=== PATIENT | female | born 1975 | race African-American/Black ===

== ENCOUNTER 2020-09-25 05:48 | Emergency (ER) | payer SELFPAY ==
[~2020-09-25] VITALS: Ht 162.6 cm; Wt 63.6 kg
[2020-09-25 06:06] VITALS: BP 122/57; Ht 162.6 cm; Wt 63.6 kg
[2020-09-25 07:15] LABS: BASOPHILS 0.3 % (0-2); EOSINOPHILS 0 % (0-7); HEMATOCRIT 40.1 % (36.0-48.0); HEMOGLOBIN 13.2 g/dL (12-16); LYMPHOCYTES 15.4 % (15-50); MCH 26.9 pg (26.0-34.0); MCHC 32.9 g/dL (31.0-37.0); MCV 81.7 fL (80.0-100.0); MEAN PLATELET VOLUME 8.8 fL (7.4-10.4); MONOCYTES 6.5 % (2-11); NEUTROPHILS 77.8 % (40-80); PLATELET COUNT 266 10x3/uL (130-400); RBC 4.91 10x6/uL (4.00-5.40); RDW 14.5 % (11.5-14.5); WBC 14.7 10x3/uL (4.8-10.8)
[2020-09-25 07:21] LABS: CALCIUM 9.9 mg/dL (8.5-10.1); CARBON DIOXIDE 28.1 mmol/L (21.0-32.0); CREATININE - SERUM 0.9 mg/dL (0.6-1.3); POTASSIUM - SERUM 3.1 mmol/L (3.5-5.1)
[2020-09-25 07:27] LABS: ALBUMIN 3.9 g/dL (3.4-5.0); BILIRUBIN - TOTAL 0.46 mg/dL (0.2-1.3); C-REACTIVE PROTEIN 0.2 mg/dL (0.0-0.9); PROTEIN - SERUM 8.7 g/dL (6.4-8.2)
[2020-09-25 07:28] LABS: UDS - AMPHET NEGATIVE QUAL (NEGATIVE); UDS - BARB NEGATIVE QUAL (NEGATIVE); UDS - BENZO NEGATIVE QUAL (NEGATIVE); UDS - COCAINE NEGATIVE QUAL (NEGATIVE); UDS - OPIATE NEGATIVE QUAL (NEGATIVE); UDS - PCP NEGATIVE QUAL (NEGATIVE); UDS - THC POSITIVE QUAL (NEGATIVE)
[2020-09-25 07:33] LABS: BACTERIA MANY HPF (<MOD); BILIRUBIN NEGATIVE (NEGATIVE); KETONE 2+ mg/dL (< 1+); NITRITE NEGATIVE (NEGATIVE); SQUAMOUS EPITHELIAL 5 HPF (0-4); UROBILINOGEN 2 mg/dL (< 2); WHITE CELLS - URINE 34 HPF (0-4)
[2020-09-25] MEDS ORDERED: MACROBID100 MG PO (08:38)
[2020-09-25] MEDS ORDERED: CEPHALEXIN500 M1 PO (08:38)
[2020-09-25] MEDS ORDERED: PHENAZOPYRIDIN200 MG PO (08:38)
[2020-09-25] MEDS ORDERED: ZOFRAN ODT4 MG/UDTAB PO (08:39)
== END 2020-09-25 09:29 | disposition home or self-care (01) ==
LOC: D.ER 05:48
PROVIDERS: Family Medicine
DX: R11.2 Nausea with vomiting, unspecified (principal); M54.9 Dorsalgia, unspecified; N39.0 Urinary tract infection, site not specified